=== PATIENT | male | born 1990 | race Caucasian/White ===

== ENCOUNTER 2021-12-06 13:12 | Emergency (ER) | payer BC ==
[~2021-12-06] VITALS: Ht 172.7 cm; Wt 97.5 kg
[2021-12-06 13:31] VITALS: BP 136/74
--- NOTE | 2021-12-06 13:58 | NUR ---
SEEN AND EXAMINED BY .
--- NOTE | 2021-12-06 14:08 | NUR ---
TRUST OFFICER AT BEDSIDE
[2021-12-06] MEDS ORDERED: NAPR-1192 PO (14:35)
--- NOTE | 2021-12-06 14:40 | NUR ---
POSTERIOR SHORT LEG SPLINT DONE BY PANEL ASSEMBLER.
--- NOTE | 2021-12-06 14:59 | NUR ---
Patient discharged to home in stable condition. Written and verbal after care instructions given. Patient verbalizes understanding of instruction.
--- NOTE | 2021-12-06 14:59 | NUR ---
Jerri stout in [facility] - 12/06/21 at 1459 by KRISTEN DC
== END 2021-12-06 15:00 | disposition home or self-care (01) ==
LOC: ER 13:30
DX: S96.911A Strain of unspecified muscle and tendon at ankle and foot level, right foot, initial encounter (principal); X58.XXXA Exposure to other specified factors, initial encounter; Y93.89 Activity, other specified; Y92.89 Other specified places as the place of occurrence of the external cause; Y99.8 Other external cause status
CPT/HCPCS: 73610-TC